=== PATIENT | female | born 1960 | race Caucasian/White ===

== ENCOUNTER 2017-11-18 11:58 | Emergency (ER) | payer MEDICAID, SELFPAY ==
[2017-11-18 12:01] VITALS: BP 128/78; PULSE 106; RESP 16; TEMP 36.5; O2SAT 95; BMI 20.7
--- NOTE | 2017-11-18 12:29 | ED.DCSUM_ITS ---
- ER Visit Summary Date of Service: 11/18/17 Chief Complaint: [Dental pain] History of Present Illness: The patient is a 57 F [presents to the emergency department with dental pain that started yesterday. Patient complains of pain in the left upper dentition. Patient woke up this morning in her left face was swollen. Patient denies any fever. She denies any trauma.] Physical Examination: [HEENT-PERRLA, EOMI. Cranial nerves II through XII grossly intact. TMs clear. Mucous membranes moist. No adenopathy. Left sided facial swelling noted without evidence of facial cellulitis. Patient has tenderness palpation over the left upper second molar that. Patient has soft tissue swelling to the gingiva adjacent to the upper molars. No fluctuance noted. Cardiovascular-regular rate and rhythm without murmur or ectopy Lungs-clear to auscultation, chest wall stable without crepitus or subcu emphysema Abdomen-normoactive bowel sounds, soft, nontender, no rebound or rigidity, no peritoneal signs. Extremities-intact ?4, normal range of motion, normal pulses, atraumatic] Test Results: [None indicated] Emergency Department Course and Treatment: [Patient was started on clindamycin] . I believe patient likely has an early abscess however I do not feel it is amenable to I&D at this time as I feel this is more of an inflammatory process at this time. Treatment Plan: [She will be started on clindamycin and given a prescription for [place] for pain.] Disposition: [Discharged to home in stable condition. Patient advised to return if increasing pain, redness, swelling, fever, or condition should worsen in any way. Patient advised to follow-up with a dentist within the next 3-4 days.] Impression: Dental pain Dental abscess [] This note was generated with [employer] dictation software. It may contain incorrect words, spelling, and punctuation that were not noted in review of the chart prior to signing ED Disposition - Plan for ED Patient: Chief Complaint: Dental Referrals: Joey Christianson MD [Primary Care Provider] -
--- NOTE | 2017-11-18 12:29 | ED.DEP ---
ED Disposition - Plan for ED Patient: Chief Complaint: Dental Instructions: ED Tooth Pain, ED Abscess Dental Prescriptions: Hydrocodone Bitart/Apap 5-325 [[place] 5/325] 1 - 2 tab PO Q4H PRN PRN 3 Days #12 tab PRN Reason: Pain Clindamycin HCl [Cleocin] 300 mg PO Q6H #40 cap Referrals: Joey Christianson MD [Primary Care Provider] - Additional Instructions: see a dentist
[2017-11-18 12:56] VITALS: PULSE 101; RESP 16; O2SAT 97
== END 2017-11-18 12:57 | disposition home or self-care (01) ==
LOC: ED 12:51
PROVIDERS: Emergency Provider Emergency Medicine; Family Provider Internal Medicine; PCP Internal Medicine
DX: K04.7 Periapical abscess without sinus (principal); K08.89 Other specified disorders of teeth and supporting structures; Z72.0 Tobacco use
CPT/HCPCS: 99284

== ENCOUNTER 2019-09-01 10:22 | Emergency (ER) | payer MEDICAID, SELFPAY ==
[2019-09-01 10:23] VITALS: BP 151/76; PULSE 94; RESP 18; TEMP 36.6; O2SAT 96; BMI 22.1
--- NOTE | 2019-09-01 10:59 | CT_ITS ---
STUDY: CT ABDOMEN AND PELVIS WITH CONTRAST REASON FOR EXAM: Female, 59 years old. Diarrhea. Vomiting. RADIATION DOSAGE (If Supplied By Facility): CTDIvol = ( 8.02 ) mGy, DLP = ( 428.23 ) mGycm TECHNIQUE: Transaxial images were obtained from the dome of the diaphragm to the symphysis pubis without oral contrast. Intravenous contrast was administered. Sagittal and coronal images were reconstructed. Individualized dose optimization techniques were used for this CT. COMPARISON: None. FINDINGS: The visualized lung bases are clear. The visualized portions of the heart and pericardium are within normal limits. There are no calcified gallstones present. The liver is within normal limits. There are no suspicious hepatic lesions. The spleen is enlarged, measuring 19 cm in craniocaudal dimension. The pancreas is within normal limits. The adrenal glands are within normal limits. There are no renal or ureteral stones. There is no hydronephrosis. There are no focal renal lesions. Normal visualized stomach. There is no bowel obstruction or inflammation. The appendix is visualized and appears normal. The aorta is normal in caliber. There are atherosclerotic calcifications noted in the aorta. There is no abdominal or pelvic free air, free fluid, fluid collection or lymphadenopathy. There are no destructive osseous lesions. CT/Abdomen/Pelvis W IV Cont ONLY IMPRESSION: No acute abdominal or pelvic pathology. Splenomegaly. Electronically Signed: Naveed Mcadams, at 13:03 EST Tel , Service support ,
--- NOTE | 2019-09-01 11:00 | ED.VISSUMM ---
- ER Visit Summary Date of Service: 09/01/19 Chief Complaint: Periumbilical abdominal pain History of Present Illness: The patient is a 59 F she has had diarrhea since Monday. Had nausea vomiting yesterday. Describes the diarrhea as loose. No melena. No bright red blood. No dysuria. No fever. Said she had pizza yesterday and it made her abdomen feel worse and she has had periumbilical intermittent crampy abdominal pain since that time. She denies any prior abdominal surgeries. Physical Examination: Middle-aged female smoker. Vital signs stable afebrile. H EENT exam unremarkable small tobacco. Neck nontender. Lungs clear to auscultation bilaterally. Heart regular rhythm no murmur. Abdomen is soft. Nondistended. Normal bowel sounds. No peritoneal signs. No pulsatile mass. Mild periumbilical tenderness. No hernias or masses. No signs of obstruction. Both the right upper and right lower quadrants are unremarkable. Patient is moving all 4 extremities. No edema. Neurologically she is awake and alert with no focal motor deficits. Test Results: CBC normal white count 6. Hemoglobin 14. Chemistries normal normal creatinine and gap. Liver enzymes and lipase normal. UA normal. CT abdomen pelvis shows no acute abnormality. Reviewed by me and read by the radiologist. Emergency Department Course and Treatment: Treated with IV fluids. She did not waiting for nausea or pain at this time. Labs and a CT will be obtained. Treatment Plan: Multiple repeat exams abdomen is benign. History, physical, exam, labs and imaging are consistent with a viral gastroenteritis. Discharged home with Zofran. Rest. Follow-up if not improving return if worse. Disposition: Discharge Impression: Acute abdominal pain secondary to viral gastroenteritis This note was generated with [employer] software. It may contain incorrect words, spelling, and punctuation that were not noted in review of the chart prior to signing ED Disposition - Plan for ED Patient: Referrals: Danita Reagan MD [Primary Care Provider] -
[2019-09-01 11:40] LABS: Bacteria 0 SEEN /hpf (None Seen); Mucous, Urine 0 SEEN /hpf (<or=2+); Red Blood Cells-Urine 0 SEEN /hpf (0-5); Squamous Epithelial Cells - UA 0 SEEN /hpf (5-10); White Blood Cells 0 SEEN /hpf (0-5)
[2019-09-01] MEDS: 0.9% Normal Saline 1,000 ML 1000 ML IV (11:41)
[2019-09-01 11:43] LABS: Color, Urine Straw (Yellow); Glucose, Dipstick Normal (Normal); Ketone-Dipstick Negative (Negative); Leukocyte Esterase-Dipstick Negative /ul (Negative); Nitrite-Dipstick Negative (Negative); Occult Blood-Urine Negative /ul (Negative); Protein-Dipstick Negative (Negative); Specific Gravity, Urine 1.005 (1.002-1.030); Urine Bilirubin Dipstick Negative (Negative); Urine Clarity Clear (Clear); Urine Urobilinogen Normal (Normal); Urine pH 6.5 (5.0 - 8.0)
[2019-09-01 11:56] LABS: Absolute Lymphocyte Count 1.12 X10^3/uL (0.83-4.51); Absolute Neutrophil Count 4.6 X10^3/uL (2.0-7.7); Basophil# 0.01 X10^3/uL; Basophil% 0.2 % (0-1); Eosinophil# 0.05 X10^3/uL; Eosinophils% 0.8 % (0-5); Hematocrit 42.7 % (37-47); Hemoglobin 14.4 g/dL (12.0-15.0); Lymphocyte # 1.12 X10^3/ul (4.0); Lymphocyte % 18.1 % (19-41); Mean Corp Hgb Conc 33.7 g/dL (32-36); Mean Corpuscular Hgb 30.1 pg (27.0-32.0); Mean Corpuscular Volume 89.1 fL (81-99); Mean Platelet Vol. 10.4 fl (6.2-12.0); Monocyte# 0.43 X10^3/uL; NRBC Flagged by Analyzer 0 % (0-5); Neutrophil # 4.55 X10^3/uL (2.7-7.7); Neutrophil % 73.6 % (47-70); Platelet Count 142 K/mm3 (150-450); RBC Distribution Width CV 12.9 % (11.6-14.6); RBC Distribution Width SD 42.1 fl (35.1-43.9); Red Blood Count 4.79 M/mm3 (4.2-5.4); White Blood Count 6.2 K/mm3 (4.4-11.0)
[2019-09-01 12:19] LABS: AST(SGOT) 26 U/L (15-37); Alanine Aminotransfer ALT/SGPT 26 U/L (13-56); Albumin, Serum 3.7 g/dL (3.2-5.0); Alkaline Phosphatase 70 U/L (45-117); Anion Gap 3 (5-15); BUN 9 mg/dL (7-18); BUN/Creat Ratio 13.4 RATIO (10-20); Bilirubin, Direct 0.05 mg/dL (0.00-0.30); Chloride 106 mmol/L (98-107); Creatinine, Serum 0.67 mg/dL (0.55-1.02); EST Glomerular Filtration Rate 95 mL/min (>60); Est Glom Filt Rate - Afr Amer 115 mL/min (>60); Estimated Creatinine Clearance 73.86 ml/min; Globulin 3.8 g/dL (2.2-4.2); Glucose 92 mg/dL (74-106); Lipase 49 U/L (73-393); Potassium 4.1 mmol/L (3.5-5.1); Protein, Total 7.5 g/dL (6.4-8.2); Sodium Level 138 mmol/L (136-145)
--- NOTE | 2019-09-01 13:13 | ED.DEP ---
ED Disposition - Plan for ED Patient: Disposition: Home or Assisted Living Instructions: GASTROENTERITIS, Viral (5y-Adult) Prescriptions: Ondansetron [Zofran Odt] 4 mg PO Q8H PRN PRN #7 tab PRN Reason: Nausea Prescription Printed Referrals: Danita Reagan MD [Primary Care Provider] - 3-5 Days if not improving Additional Instructions: Plenty of fluids and rest. Increase diet as tolerated. Zofran as needed for nausea.
[2019-09-01 13:27] VITALS: BP 123/63; PULSE 84; PULSE 90; RESP 17; RESP 18; O2SAT 96
== END 2019-09-01 13:30 | disposition home or self-care (01) ==
PROVIDERS: Emergency Provider Emergency Medicine; Family Provider Internal Medicine; PCP Internal Medicine
DX: A08.4 Viral intestinal infection, unspecified (principal); R10.33 Periumbilical pain; K21.9 Gastro-esophageal reflux disease without esophagitis; F17.200 Nicotine dependence, unspecified, uncomplicated; Z79.899 Other long term (current) drug therapy
CPT/HCPCS: 74177; 80048; 80076; 81001; 83690; 85025; 96360; 99283; J7030; Q9967; A4216

== ENCOUNTER → 2020-06-11 | Outpatient (CLI) | payer MEDICAID, SELFPAY | END | disposition home or self-care (01) | LOC: LABSPEC 15:28 | PROVIDERS: Referring Provider Family Medicine; Visit Provider Family Medicine | DX: Z03.818 Encounter for observation for suspected exposure to other biological agents ruled out (principal) | CPT/HCPCS: 87635; U0003 ==

== ENCOUNTER → 2020-07-09 | Outpatient (CLI) | payer MEDICAID, SELFPAY | END | disposition home or self-care (01) | LOC: LABSPEC 16:24 | PROVIDERS: Referring Provider Family Medicine; Visit Provider Family Medicine | DX: Z03.818 Encounter for observation for suspected exposure to other biological agents ruled out (principal) | CPT/HCPCS: 87635; U0003 ==

== ENCOUNTER → 2020-07-23 | Outpatient (CLI) | payer MEDICAID, SELFPAY | END | disposition home or self-care (01) | LOC: LABSPEC 07-27 14:23 | PROVIDERS: Referring Provider Family Medicine; Visit Provider Family Medicine | DX: Z03.818 Encounter for observation for suspected exposure to other biological agents ruled out (principal) | CPT/HCPCS: 87635; U0003 ==

== ENCOUNTER → 2020-08-06 | Outpatient (CLI) | payer MEDICAID, SELFPAY | END | disposition home or self-care (01) | LOC: LABSPEC 11:53 | PROVIDERS: Referring Provider Family Medicine; Visit Provider Family Medicine | DX: Z03.818 Encounter for observation for suspected exposure to other biological agents ruled out (principal) | CPT/HCPCS: 87635; U0003 ==